=== PATIENT | male | born 1990 | race Caucasian/White ===

== ENCOUNTER 2017-01-09 15:38 | Emergency (ER) | payer BC, OTHER ==
[2017-01-09 15:39] VITALS: BMI 22.8
[2017-01-09 16:25] VITALS: BP 134/77; PULSE 67; RESP 16; TEMP 98.3; O2SAT 98
--- NOTE | 2017-01-09 16:47 | ED PDOC ---
Arrival/HPI - General Historian: Patient - History of Present Illness Time/Duration: 24 hours Symptom Onset: Sudden Symptom Course: Unchanged Quality: Aching Severity Level: 4 Activities at Onset: Light Context: Walking - General Chief Complaint: Abdominal Pain Time Seen by Provider: 01/09/17 15:44 - History of Present Illness Narrative History of Present Illness (Text): 01/09/17 16:47 This is a 26YM with PMH of R inguinal hernia repair 1 month ago here for R and L inguinal pain x 1 day. Patient was at a graduation yesterday and accidentally bumped into someone. That person kicked him in his R inguinal region. Since then , the patient has been having pain on both the R and L inguinal region. He denies having any blood or bruising in the site, but can hear crepitus coming from the inguinal region when he has a BM. He denies fever, chills, CP, SOB, penile discharge, n/v/d, dysuria, hematuria or increased frequency. (Dee Chavira) Past Medical History - Provider Review Nursing Documentation Reviewed: Yes - Infectious Disease Hx of Infectious Diseases: None - Cardiac Hx Cardiac Disorders: No - Pulmonary Hx Respiratory Disorders: No - Neurological Hx Neurological Disorder: No - HEENT Hx HEENT Disorder: No - Renal Hx Renal Disorder: No - Endocrine/Metabolic Hx Endocrine Disorders: No - Hematological/Oncological Hx Blood Disorders: No - Integumentary Hx Dermatological Disorder: No - Musculoskeletal/Rheumatological Hx Musculoskeletal Disorders: Yes (SEE COMMENT) Hx Fractures: Yes (NASAL FX/SX) - Gastrointestinal Other/Comment: HERNIA - Genitourinary/Gynecological Hx Genitourinary Disorders: No - Psychiatric Hx Psychophysiologic Disorder: No Hx Anxiety: No Hx Bipolar Disorder: No Hx Depression: No Hx Post Traumatic Stress Disorder: No Hx Schizophrenia: No Hx Substance Use: No - Surgical History Hx Orthopedic Surgery: Yes (NASAL FX) - Anesthesia Hx Anesthesia: No Hx Anesthesia Reactions: No Hx Malignant Hyperthermia: No Family/Social History - Physician Review Nursing Documentation Reviewed: Yes Family/Social History: No Known Family HX Smoking Status: Light Smoker < 10 Cigarettes Daily Hx Alcohol Use: No Hx Substance Use: No Allergies/Home Meds Allergies/Adverse Reactions: Allergies No Known Allergies Allergy (Verified 01/09/17 16:20) Review of Systems - Physician Review All systems were reviewed & negative as marked: Yes - Review of Systems Constitutional: Normal. absent: Fevers Respiratory: Normal. absent: SOB, Cough Cardiovascular: Normal. absent: Chest Pain, Palpitations Gastrointestinal: Normal. absent: Abdominal Pain, Stool Changes, Constipation, Diarrhea, Nausea, Vomiting Genitourinary Male: Normal. absent: Dysuria, Frequency Musculoskeletal: Other (inguinal pain ) Skin: Normal. absent: Rash Neurological: Normal. absent: Headache, Dizziness Endocrine: Normal. absent: Polyuria, Polydipsia Psychiatric: Normal. absent: Anxiety, Depression Physical Exam Vital Signs Reviewed: Yes Temperature: Afebrile Blood Pressure: Normal Pulse: Regular Respiratory Rate: Normal Appearance: Positive for: Well-Appearing, Non-Toxic, Comfortable Pain Distress: None Mental Status: Positive for: Alert and Oriented X 3 - Systems Exam Head: Present: Atraumatic, Normocephalic Mouth: Present: Moist Mucous Membranes Neck: Present: Normal Range of Motion Respiratory/Chest: Present: Clear to Auscultation, Good Air Exchange. No: Respiratory Distress, Accessory Muscle Use Cardiovascular: Present: Regular Rate and Rhythm, Normal S1, S2. No: Murmurs Abdomen: Present: Normal Bowel Sounds. No: Tenderness, Distention, Peritoneal Signs, Hernias (no hernias noted in the inguinal region bilaterally ) Back: Present: Normal Inspection Upper Extremity: Present: Normal Inspection. No: Cyanosis, Edema Lower Extremity: Present: Normal Inspection. No: Edema Neurological: Present: GCS=15, CN II-XII Intact, Speech Normal Skin: Present: Warm, Dry, Normal Color. No: Rashes Psychiatric: Present: Alert, Oriented x 3, Normal Insight, Normal Concentration Vital Signs Temp Pulse Resp BP Pulse Ox 01/09/17 16:20 98.3 F 67 16 134/77 98 Medical Decision Making Re-evaluation Time: 18:49 Reassessment Condition: Unchanged - Lab Interpretations I have reviewed the lab results: Yes Interpretation: All labs normal - RAD Interpretation Director Digital: Radiologist ED Course and Treatment: 01/09/17 16:54 Impression: This is a 26Y M with PMH of R inguinal hernia repair one month ago here for bilateral inguinal pain x 1 day s/p trauma. Differential Diagnosis: -- Inguinal hernia -- Contusion Plan: -- CT abd/pelvis -- U/A, Urine culture -- Reassess and disposition Prior Visits: Notes and results from previous visits were reviewed. Progress Note: CT abd/pelvis completed. Waiting for reading. Patient reports feeling OK. Does not want anything for pain at this time. 01/09/17 18:56 CT abd/pelvis showed post surgical changes and small non-obstructing kidney stone. U/A negative. Discharge Instructions: Re-evaluation. Patient feels better. Discussed results and plan with patient who expresses understanding. All questions answered and there is agreement with the plan to discharge home with instructions. Patient stable for discharge. Return if symptoms persist or worsen. ( Dee Chavira) 01/09/17 18:[address]: Creator : Ajay Morales FINDINGS: LOWER THORAX:Unremarkable. LIVER:Unremarkable. No gross lesion or ductal dilatation. GALLBLADDER AND BILE DUCTS:Unremarkable. PANCREAS:Unremarkable. No gross lesion or ductal dilatation. SPLEEN:Unremarkable. ADRENALS:Unremarkable. No mass. KIDNEYS AND URETERS:There is approximately 2 millimeter nonobstructing calculus at the upper pole of the left kidney. No evidence of hydronephrosis or hydroureter. VASCULATURE:Unremarkable. No aortic aneurysm. BOWEL:Unremarkable. No obstruction. No gross mural thickening. APPENDIX:Unremarkable. Normal appendix. PERITONEUM:Unremarkable. No free fluid. No free air. LYMPH NODES:Unremarkable. No enlarged lymph nodes. BLADDER:[id number] circumferential urinary bladder wall thickening. REPRODUCTIVE:Unremarkable. BONES:No acute fracture. OTHER FINDINGS:Status post right inguinal hernia repair. No evidence of hernia recurrence. No evidence of hematoma or fluid collection at the inguinal region. IMPRESSION: 2 millimeter nonobstructing calculus at the upper pole of the left kidney. Postsurgical changes suggestive of prior right inguinal hernia repair. No evidence of hernia recurrence or hematoma or fluid collection. (Shahrzad Crump) - Lab Interpretations Lab Results: Lab Results 01/09/17 17:30: Urine Color Yellow, Urine Appearance Clear, Urine pH 6.0, Ur Specific [place] >= 1.030, Urine Protein 30 H, Urine Glucose (UA) Negative, Urine Ketones Negative, Urine Blood Negative, Urine Nitrate Negative, Urine Bilirubin Negative, Urine Urobilinogen 0.2, Ur Leukocyte Esterase Negative, Urine RBC Negative, Urine WBC 0 - 2, Ur Epithelial Cells 0 - 2, Urine Bacteria Trace, Urine Other Usperm - RAD Interpretation Narrative RAD Interpretations (Text): 01/09/17 19:05 CT abd/pelvis showed post surgical changes in R hernia repair and 2mm non obstructing kidney stone in L. No hydronephrosis seen. Please see full report for more details. (Dee Chavira) Radiology Orders: 01/09/17 16:38 ABDOMEN & PELVIS [ABD & PELVIS W/O PO OR IV CONT] [CT] Stat Disposition/Present on Arrival - Present on Arrival Any Indicators Present on Arrival: No History of DVT/PE: No History of Uncontrolled Diabetes: No Urinary Catheter: No History of Decub. Ulcer: No History Surgical Site Infection Following: None - Disposition Have Diagnosis and Disposition been Completed?: Yes Disposition Time: 18:56 Patient Plan: Discharge - Disposition Disposition: HOME/ ROUTINE Discharge Instructions (ExitCare): Kidney Stones (GEN) Print Language: KHMER Additional Instructions: Mr. Dillon, thank you for letting us take care of you today. Your provider was Dr. Chavira. You were treated for inguinal pain and kidney stone. The emergency medical care you received today was directed at your acute symptoms. If you were prescribed any medication, please fill it and take as directed. It may take several days for your symptoms to resolve. Return to the Emergency Department if your symptoms worsen, do not improve, or if you have any other problems. Please contact your doctor or call one of the physicians/clinics you have been referred to that are listed on the Patient Visit Information form that is included in your discharge packet. Bring any paperwork you were given at discharge with you along with any medications you are taking to your follow up visit. Our treatment cannot replace ongoing medical care by a primary care provider (PCP) outside of the emergency department. Thank you for allowing the [facility] team to be part of your care today. If you had an X-Ray or CT scan: A Radiologist will review the ED reading if any change in treatment is needed we will contact you. Please take Flomax for 1 week. Motrin for pain. Follow up with PMD in 1 week. Prescriptions: Ibuprofen [Motrin] 600 mg PO Q8H PRN #21 tab PRN Reason: Pain, Moderate (4-7) Tamsulosin [Flomax] 0.4 mg PO DAILY #7 cap Referrals: Geo Ridley MD [Primary Care Provider] - Follow up with primary Danie Acosta MD [Staff Provider] - Follow up with primary [facility] [Outside] - Follow up with primary
[2017-01-09 18:01] LABS: URINE BILIRUBIN NEGATIVE (NEGATIVE); URINE BLOOD NEGATIVE (NEGATIVE); URINE GLUCOSE (UA) NEGATIVE (NEGATIVE); URINE KETONE NEGATIVE (NEGATIVE); URINE LEUKOCYTE ESTERASE NEGATIVE Leu/uL (NEGATIVE); URINE PROTEIN 30 mg/dL (<30 mg/dL); URINE UROBILINOGEN 0.2 E.U./dL (<1 E.U./dL)
[2017-01-09 18:02] LABS: URINE APPEARANCE CLEAR (CLEAR); URINE COLOR YELLOW (YELLOW)
[2017-01-09 18:19] LABS: URINE BACTERIA TRACE (NEG); URINE EPITHELIAL CELLS 0 - 2 /hpf (0-5); URINE RBC NEGATIVE /hpf (0-2); URINE WBC 0 - 2 /hpf (0-6)
--- NOTE | 2017-01-09 18:52 | CT ---
PROCEDURE: CT Abdomen and Pelvis without intravenous contrast HISTORY: s/p hernia repair, trauma in hernia area COMPARISON: None. TECHNIQUE: Axial and reformatted coronal and sagittal CT images of the abdomen and pelvis were obtained without IV or oral contrast administration.. Contrast Dose: 0 Radiation dose: Total exam DLP = 1263.59 mGy-cm. This CT exam was performed using one or more of the following dose reduction techniques: Automated exposure control, adjustment of the mA and/or kV according to patient size, and/or use of iterative reconstruction technique. FINDINGS: LOWER THORAX: Unremarkable. LIVER: Unremarkable. No gross lesion or ductal dilatation. GALLBLADDER AND BILE DUCTS: Unremarkable. PANCREAS: Unremarkable. No gross lesion or ductal dilatation. SPLEEN: Unremarkable. ADRENALS: Unremarkable. No mass. KIDNEYS AND URETERS: There is approximately 2 millimeter nonobstructing calculus at the upper pole of the left kidney. No evidence of hydronephrosis or hydroureter. VASCULATURE: Unremarkable. No aortic aneurysm. BOWEL: Unremarkable. No obstruction. No gross mural thickening. APPENDIX: Unremarkable. Normal appendix. PERITONEUM: Unremarkable. No free fluid. No free air. LYMPH NODES: Unremarkable. No enlarged lymph nodes. BLADDER: [id number] circumferential urinary bladder wall thickening. REPRODUCTIVE: Unremarkable. BONES: No acute fracture. OTHER FINDINGS: Status post right inguinal hernia repair. No evidence of hernia recurrence. No evidence of hematoma or fluid collection at the inguinal region. IMPRESSION: 2 millimeter nonobstructing calculus at the upper pole of the left kidney. Postsurgical changes suggestive of prior right inguinal hernia repair. No evidence of hernia recurrence or hematoma or fluid collection.
== END 2017-01-09 19:17 | disposition home or self-care (01) ==
LOC: ED 15:38
DX: N20.0 Calculus of kidney (principal); Z98.890 Other specified postprocedural states